=== PATIENT | female | born 1990 | race American Indian/Alaskan Native ===

== ENCOUNTER 2021-01-01 11:13 | Emergency (ER) | payer MEDICAID ==
[2021-01-01 11:32] VITALS: BP 112/90; PULSE 71
--- NOTE | 2021-01-01 12:09 | EDM.PDOC ---
ED HPI GENERAL MEDICAL PROBLEM - General Chief Complaint: Wound Recheck Stated Complaint: PRIOR CYST REMOVAL/INFECTION PAIN Time Seen by Provider: 01/01/21 11:45 Source of Information: Reports: Patient, RN, RN Notes Reviewed History Limitations: Reports: No Limitations - History of Present Illness INITIAL COMMENTS - FREE TEXT/NARRATIVE: Patient presents to the ED via personal vehicle with complaints of pain to incision. The patient reports she underwent a cyst removal on her left labia majora three days ago via Dr. Bolaños. The patient was prescribed Percocet, ibuprofen, Keflex, and lidocaine jelly for treatment. She reports she has not been using the lidocaine jelly. She states increasing pain over the past 12 hours to the incision; she is out of Percocet and has taken two tabs of ibuprofen 400mg twice since 0500 which offered her [id number] alleviation of symptoms. She characterizes the pain as "poking" stinging pain which she rates at a 7/10. She states she is worried about infection. She denies fever, shaking chills, palpitations, nausea, vomiting, or diarrhea. She does attest to scant bloody drainage from the sutures, which her provider told her to expect. She has a follow up appointment on 01/12/21 for suture removal. 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 ED EXAM, SKIN/RASH Exam: See Below Exam Limited By: No Limitations General Appearance: Alert, Mild Distress (From pain to left labia) Respiratory/Chest: No Respiratory Distress, Lungs Clear, Normal Breath Sounds, No Accessory Muscle Use, Chest Non-Tender Cardiovascular: Normal Peripheral Pulses, Regular Rate, Rhythm, No Edema, No Gallop, No JVD, No Murmur, No Rub GI/Abdominal: Normal Bowel Sounds, Soft, Non-Tender, No Distention, No Mass, Pelvis Stable (Female) Exam: Other (Sutures clean with scant jhonathan bloody drainage; No erythema, or purulent drainage noted). No: Normal External Exam (Clean appropriately tied sutures noted to left labia majora) Rectal (Female) Exam: Deferred Extremities: Normal Inspection, Normal Range of Motion, Non-Tender, No Pedal Edema, Normal Capillary Refill Neurological: Alert, Oriented, CN II-XII Intact, Normal Cognition, No Motor/Sensory Deficits, Abnormal Gait (Limping gait due to pain) Psychiatric: Normal Affect, Normal Mood Skin: Warm, Dry, Normal Color, Wound/Incision (Clean dry sutured incision to left labia majora). No: Ecchymosis, Erythema, Increased Warmth, Mottled, Pallor, Petechiae Location, Skin: Genital Characteristics: Other (Surgical incision) Associated features: Weeping (Scant jhonathan, bloody drainage). No: Warmth, Tenderness, Swelling, Inflammation, Crusting Course - Vital Signs Last Recorded V/S: Last Vital Signs Temp 98.4 F 01/01/21 11:29 Pulse 71 01/01/21 11:29 Resp 14 01/01/21 11:29 BP 112/90 01/01/21 11:29 Pulse Ox 97 01/01/21 11:29 - Re-Assessments/Exams Free Text/Narrative Re-Assessment/Exam: 01/01/21 Surgical incision appears clean with appropriately tied sutures; no evidence of erythema. Three long suture threads clipped down with sterile scissors to help alleviate "poking" sensation. Patient encouraged to use lidocaine jelly and ice compresses to the healing area. Will treat acute pain with three more days of Percocet. Patient to continue with follow-up as previously scheduled. Patient verbalized understanding and agreement with the plan of care. Departure - Departure Time of Disposition: 12:04 Disposition: Home, Self-Care Condition: Good Clinical Impression: Incisional pain - Discharge Information *PRESCRIPTION DRUG MONITORING PROGRAM REVIEWED*: Not Applicable *COPY OF PRESCRIPTION DRUG MONITORING REPORT IN PATIENT SOLOMON: Not Applicable Instructions: Sutures, [place], or Adhesive Wound Closure, [id number] Referrals: Vincenzo Shah MD [Primary Care Provider] - Forms: ED Department Discharge Additional Instructions: Rx: Percocet 1.) Continue taking your antibiotics until they are gone. 2.) Follow-up with your providers, as previously scheduled. 3.) You may take ibuprofen (Advil/Motrin) 400mg every six hours, for breakth rough pain. 4.) You may apply ice compresses to the affected area, as pain and swelling persist. Sepsis Event Note (ED) - Evaluation Sepsis Screening Result: No Definite Risk - Focused Exam Vital Signs: Vital Signs Temp Pulse Resp BP Pulse Ox 01/01/21 11:29 98.4 F 71 14 112/90 97
== END 2021-01-01 12:21 | disposition home or self-care (01) ==
LOC: DL.ED 11:13
DX: G89.18 Other acute postprocedural pain (principal)
CPT/HCPCS: 99282; 99283

== ENCOUNTER 2021-01-17 00:07 | Emergency (ER) | payer OTHER, MEDICAID ==
[2021-01-17 00:23] VITALS: BP 128/93; PULSE 102
[2021-01-17] MEDS ORDERED: Acyclovir 200 MG Cap PO ONE (00:28)
[2021-01-17] MEDS ORDERED: Ketorolac 30 MG/ML SDV IVPUSH ONE (00:31)
--- NOTE | 2021-01-17 00:37 | EDM.PDOC ---
ED HPI GENERAL MEDICAL PROBLEM - General Chief Complaint: Skin Complaint Stated Complaint: HISTORY OF SHINGLES Time Seen by Provider: 01/17/21 00:20 Source of Information: Reports: Patient, RN, RN Notes Reviewed History Limitations: Reports: No Limitations - History of Present Illness INITIAL COMMENTS - FREE TEXT/NARRATIVE: Patient presents to the ED via personal vehicle with complaints of burning pain to the skin of her left lateral thigh. She attest to a history of shingles about 1.5 years ago, from which she recovered without complication. She states she began to feel the burning pain to her skin two nights ago when falling asleep. She states she has tried ibuprofen 400mg x2 doses and acetaminophen 650mg x1 dose with [id number] alleviation of pain. She feels the pain to this area is progressing in severity. She states she has not noted lesions to her skin but remembers feeling this burning prior to her last outbreak. She states she has recently been tested for HIV and is not currently ; she does note her sister tragically about one week ago and she has been experiencing significant stress. She denies fever, shaking chills, vision changes, cough, sore throat, palpitations, shortness of breath, nausea, vomiting, or diarrhea. She denies tobacco, alcohol, or recreational drug use. 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 ED EXAM, SKIN/RASH Exam: See Below Exam Limited By: No Limitations General Appearance: Alert, Mild Distress (Tearful from pain to thigh), Thin Eye Exam: Bilateral Eye: Conjunctival Injection, EOMI, PERRL (3mm) Respiratory/Chest: No Respiratory Distress, Lungs Clear, Normal Breath Sounds, No Accessory Muscle Use, Chest Non-Tender Cardiovascular: Normal Peripheral Pulses, Regular Rate, Rhythm, No Edema, No Gallop, No JVD, No Murmur, No Rub Extremities: Normal Range of Motion, Non-Tender, No Pedal Edema, Normal Capillary Refill, Leg Pain (To skin of left lateral thigh; no lesions appreciated). No: Increased Warmth, Mottled, Pallor, Redness Neurological: Alert, Oriented, CN II-XII Intact, Normal Cognition, Normal Gait, No Motor/Sensory Deficits Skin: Warm, Dry, Intact, Normal Color, No Rash. No: Ecchymosis, Erythema, Mot tled, Pallor, Zoster-Like Rash Associated features: No: Warmth, Tenderness, Swelling, Inflammation, Crusting, Weeping Course - Vital Signs Last Recorded V/S: Last Vital Signs Temp 96.6 F L 01/17/21 00:10 Pulse 102 H 01/17/21 00:10 Resp 18 01/17/21 00:10 BP 128/93 H 01/17/21 00:10 Pulse Ox 98 01/17/21 00:10 - Orders/Labs/Meds Meds: Medications Discontinued Medications Generic Name Dose Route Start Last Admin Trade Name Christopher PRN Reason Stop Dose Admin Acyclovir 800 mg 01/17/21 00:28 01/17/21 00:34 Zovirax PO 01/17/21 00:29 800 mg ONETIME ONE Administration Ketorolac Tromethamine 30 mg 01/17/21 00:31 Toradol IVPUSH 01/17/21 00:32 ONETIME ONE - Re-Assessments/Exams Free Text/Narrative Re-Assessment/Exam: 01/17/21 Patient states she hopes to prevent lesions from forming on her leg as her last experience was "...very painful." Will treat with Acyclovir as that is what is available in the formulary. Discussed progression of zoster with the patient, as well as pharmaceutical cares and supportive cares to help alleviate pain and avoid bacterial infection in open lesions. Discussed possibility of Zoster vaccination following this current outbreak. Discussed red flag signs and symptoms which would warrant reevaluation. Patient verbalized understanding and agreement with the plan of care. Departure - Departure Time of Disposition: 00:33 Disposition: Home, Self-Care 01 Condition: Good Clinical Impression: Herpes zoster Qualifiers: Herpes zoster complications: without complications Qualified Code(s): B02.9 - Zoster without complications - Discharge Information *PRESCRIPTION DRUG MONITORING PROGRAM REVIEWED*: Not Applicable *COPY OF PRESCRIPTION DRUG MONITORING REPORT IN PATIENT [place]OM[place]: Not Applicable Instructions: Shingles, [id number]-[id number] Forms: ED Department Discharge Additional Instructions: Rx: Acyclovir 1.) Take all of your medications until gone. 2.) You may take ibuprofen (Advil/Motrin) 400mg every four hours, as pain persists. 3.) Apply cold compresses to the affected as for comfort. 4.) You may also apply anti-itch cream (hydrocortisone) to lesions to lessen the pain/burn/itch 4.) Keep lesions clean, dry, and covered as the open and weep. Sepsis Event Note (ED) - Evaluation Sepsis Screening Result: No Definite Risk - Focused Exam Vital Signs: Vital Signs Temp Pulse Resp BP Pulse Ox 01/17/21 00:10 96.6 F L 102 H 18 128/93 H 98
[2021-01-17] MEDS ORDERED: Acyclovir 200 MG Cap ONE (00:38)
== END 2021-01-17 00:45 | disposition home or self-care (01) ==
LOC: DL.ED 00:07
DX: B02.9 Zoster without complications (principal)
CPT/HCPCS: 96374; 99283; A9270; J1885

== ENCOUNTER 2021-02-21 07:43 | Emergency (ER) | payer MEDICAID, OTHER ==
--- NOTE | 2021-02-21 07:57 | EDM.PDOC ---
ED HPI GENERAL MEDICAL PROBLEM - General Chief Complaint: Respiratory Problem Stated Complaint: CHEST CONGESTION HURTS TO COUGH Time Seen by Provider: 02/21/21 07:57 Source of Information: Reports: Patient, RN, RN Notes Reviewed History Limitations: Reports: No Limitations - History of Present Illness INITIAL COMMENTS - FREE TEXT/NARRATIVE: Pt presents to ER from home by POV with c/o one weeks duration of congestion, cough, and sputum production. Pt states she had a fever the first day, but not since then. She now has sharp pain with deep breathing and coughing. Denies ear pain. Admits to mild sore throat. 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 ED EXAM, GENERAL - Physical Exam Exam: See Below Exam Limited By: No Limitations General Appearance: Alert, WD/WN, No Apparent Distress Eye Exam: Bilateral Eye: Normal Inspection Ears: Normal External Exam, Normal Canal, Hearing Grossly Normal, Normal TMs Nose: No Blood, Nasal Drainage Throat/Mouth: Normal Voice, No Airway Compromise, Other (Postnasal drip, mild pharngeal erythema) Head: Atraumatic, Normocephalic Neck: Normal Inspection, Supple, Non-Tender, Full Range of Motion. No: Lymphadenopathy (L), Lymphadenopathy (R) Respiratory/Chest: No Respiratory Distress, No Accessory Muscle Use, Chest Non- Tender, Crackles, Rhonchi (Left base, clear with cough), Other (Dry cough). No: Rales, Wheezing Cardiovascular: Normal Peripheral Pulses, Regular Rate, Rhythm Extremities: Normal Inspection Neurological: Alert, Oriented, No Motor/Sensory Deficits Psychiatric: Normal Mood Skin Exam: Warm, Dry, Intact, Normal Color, No Rash Course - Vital Signs Last Recorded V/S: Last Vital Signs Temp 98.1 F 02/21/21 07:58 Pulse 78 02/21/21 07:58 Resp 18 02/21/21 07:58 BP 105/83 02/21/21 07:58 Pulse Ox 99 02/21/21 07:58 - Orders/Labs/Meds Meds: Medications Discontinued Medications Generic Name Dose Route Start Last Admin Trade Name Christopher PRN Reason Stop Dose Admin Benzonatate 200 mg 02/21/21 08:04 Benzonatate 100 Mg Cap PO 02/21/21 08:05 ONETIME ONE Prednisone 60 mg 02/21/21 08:04 Prednisone 20 Mg Tab PO 02/21/21 08:05 ONETIME ONE Departure - Departure Time of Disposition: 08:13 Disposition: Home, Self-Care 01 Condition: Good Clinical Impression: URI with cough and congestion, Pleuritic chest pain Acute bronchitis Qualifiers: Bronchitis organism: other organism Qualified Code(s): J20.8 - Acute bronchitis due to other specified organisms - Discharge Information *PRESCRIPTION DRUG MONITORING PROGRAM REVIEWED*: Not Applicable *COPY OF PRESCRIPTION DRUG MONITORING REPORT IN PATIENT [place]OM[place]: Not Applicable Instructions: Acute Bronchitis, Adult, Pleurisy, [id number] Forms: ED Department Discharge Additional Instructions: Rx: Tessalon Perles 200mg Rx: Prednisone 20mg Rx: Zithromax 250mg Follow up in clinic if not improving in 5 days. Sepsis Event Note (ED) - Focused Exam Vital Signs: Vital Signs Temp Pulse Resp BP Pulse Ox 02/21/21 07:58 98.1 F 78 18 105/83 99
[2021-02-21 08:00] VITALS: BP 105/83; PULSE 78
[2021-02-21] MEDS ORDERED: predniSONE 20 MG Tab PO ONE (08:04)
[2021-02-21] MEDS ORDERED: Benzonatate 100 MG Cap PO ONE (08:04)
== END 2021-02-21 08:26 | disposition home or self-care (01) ==
LOC: DL.ED 07:43
DX: J20.8 Acute bronchitis due to other specified organisms (principal); J06.9 Acute upper respiratory infection, unspecified
CPT/HCPCS: 99283; A9270; J7512

== ENCOUNTER 2021-04-26 15:38 | Emergency (ER) | payer MEDICAID, OTHER ==
[2021-04-26 16:01] VITALS: BP 113/80; PULSE 90
[2021-04-26] MEDS ORDERED: Ibuprofen 800 MG Tab PO ONE (16:27)
[2021-04-26] MEDS ORDERED: Lidocaine 5% Oint 35.44 GM Tube TOP ONE (16:30)
--- NOTE | 2021-04-26 16:36 | CR ---
PROCEDURE INFORMATION: Exam: XR Left Wrist Exam date and time: 04/26/2021 4:06 PM Age: 30 years old Clinical indication: Pain; Wrist; Left TECHNIQUE: Imaging protocol: XR Left wrist. Views: 3 or more views. COMPARISON: No relevant prior studies available. FINDINGS: Bones/joints: Normal anatomic alignment. There is no evidence of acutely displaced fractures. There is no evidence of joint dislocation. No aggressive osseous lesions. Soft tissues: There is no significant soft tissue swelling. IMPRESSION: Negative for acute skeletal pathology.
--- NOTE | 2021-04-26 16:37 | EDM.PDOC ---
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 She has bruising and deformity noted. Patient states has been icing the extremity, but the pain became to great today. Onset Date: 04/24/21 Duration: Getting Worse Location: Reports: Upper Extremity, Left Quality: Reports: Ache Severity: Moderate Improves with: Reports: None Worsens with: Reports: None Associated Symptoms: Reports: No Other Symptoms Left Wrist Pain Score (Numeric/FACES): 8 - Related Data Allergies Allergy/AdvReac Type Severity Reaction Status Date / Time No Known Drug Allergies Allergy none Verified 04/26/21 16:01 Home Meds: Home Meds . 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 ED EXAM, GENERAL - Physical Exam Exam: See Below Exam Limited By: No Limitations General Appearance: Alert, WD/WN, No Apparent Distress Throat/Mouth: Normal Voice, No Airway Compromise Head: Atraumatic, Normocephalic Neck: Normal Inspection Respiratory/Chest: No Respiratory Distress Cardiovascular: Normal Peripheral Pulses Extremities: Normal Capillary Refill, Limited Range of Motion (Left wrist and thumb with large bruise, no swelling, no deformity, tender to palpation). No: Joint Swelling Neurological: Alert, Oriented Psychiatric: Normal Mood Skin Exam: Warm, Dry, Intact Course - Vital Signs Last Recorded V/S: Last Vital Signs Temp 98 F 04/26/21 15:58 Pulse 90 04/26/21 15:58 Resp 12 04/26/21 15:58 BP 113/80 04/26/21 15:58 Pulse Ox 96 04/26/21 15:58 - Orders/Labs/Meds Orders: Active Orders 24 hr Category Date Time Status Wrist Comp Min 3V Lt [CR] Urgent Exams 04/26/21 15:56 Taken DME for Discharge [COMM] Routine Oth 04/26/21 16:25 Ordered Meds: Medications Discontinued Medications Generic Name Dose Route Start Last Admin Trade Name Freq PRN Reason Stop Dose Admin Ibuprofen 800 mg 04/26/21 16:27 Ibuprofen 800 Mg Tab PO 04/26/21 16:28 ONETIME ONE Lidocaine HCl 30 gm 04/26/21 16:30 Lidocaine 5% Oint 35.44 Gm Tube TOP 04/26/21 16:31 ONETIME ONE Tramadol HCl 50 mg 04/26/21 16:26 Tramadol 50 Mg Tab PO 04/26/21 16:27 ONETIME ONE Departure - Departure Time of Disposition: 16:31 Disposition: Home, Self-Care 01 Condition: Good Clinical Impression: Left wrist sprain Qualifiers: Encounter type: initial encounter Qualified Code(s): S63.502A - Unspecified sprain of left wrist, initial encounter Left thumb sprain Qualifiers: Encounter type: initial encounter Sprain of finger site: other site Qualified Code(s): S63.682A - Other sprain of left thumb, initial encounter Contusion of left upper extremity Qualifiers: Encounter type: initial encounter Qualified Code(s): S40.022A - Contusion of left upper arm, initial encounter - Discharge Information *PRESCRIPTION DRUG MONITORING PROGRAM REVIEWED*: No *COPY OF PRESCRIPTION DRUG MONITORING REPORT IN PATIENT [place]OMON: No Instructions: Skier's Thumb, Contusion, [id number], Wrist Sprain, Adult Forms: ED Department Discharge Additional Instructions: Rx: Tramadol 50mg Rx: Ibuprofen 800mg Wear left spica splint for 2 weeks. Follow up in clinic for recheck in two weeks. Sepsis Event Note (ED) - Evaluation Sepsis Screening Result: No Definite Risk - Focused Exam Vital Signs: Vital Signs Temp Pulse Resp BP Pulse Ox 04/26/21 15:58 98 F 90 12 113/80 96 - My Orders Last 24 Hours: My Active Orders 04/26/21 15:56 Wrist Comp Min 3V Lt [CR] Urgent 04/26/21 16:25 DME for Discharge [COMM] Routine - Assessment/Plan Last 24 Hours: My Active Orders 04/26/21 15:56 Wrist Comp Min 3V Lt [CR] Urgent 04/26/21 16:25 DME for Discharge [COMM] Routine I have read and agree with the documentation that has been completed regarding this visit. By signing this record, I attest that the documentation was completed in my physical presence and is an accurate record of the encounter.
[2021-04-26] MEDS: traMADol 50 MG Tab PO ONE ×2 (16:38→16:39)
== END 2021-04-26 16:43 | disposition home or self-care (01) ==
LOC: DL.ED 15:38
DX: S63.502A Unspecified sprain of left wrist, initial encounter (principal); S63.682A Other sprain of left thumb, initial encounter; S40.022A Contusion of left upper arm, initial encounter; W18.09XA Striking against other object with subsequent fall, initial encounter
CPT/HCPCS: 73110-LT; 99283; 99283-25; A9270-GY

== ENCOUNTER 2022-03-07 11:10 | Emergency (ER) | payer MEDICAID ==
[2022-03-07 11:21] VITALS: BP 131/67; PULSE 80
[2022-03-07] MEDS ORDERED: Ketorolac 30 MG/ML SDV IM ONE (12:47)
== END 2022-03-07 13:15 | disposition home or self-care (01) ==
LOC: DL.ED 11:10
DX: R10.2 Pelvic and perineal pain (principal)
CPT/HCPCS: 96372; 99283; J1885

== ENCOUNTER 2022-04-02 23:01 | Emergency (ER) | payer MEDICAID ==
[2022-04-03 00:27] LABS: ANION GAP 14.6 mEq/L (7-13); CHLORIDE,CL 106 mmol/L (98-107); SODIUM,NA 139 mmol/L (136-145)
[2022-04-03] MEDS ORDERED: Ketorolac 30 MG/ML SDV IM ONE (00:42)
[2022-04-03 01:05] VITALS: BP 114/75; PULSE 84
== END 2022-04-03 01:47 | disposition home or self-care (01) ==
LOC: DL.ED 23:01
DX: R10.31 Right lower quadrant pain (principal); R10.32 Left lower quadrant pain; Z88.5 Allergy status to narcotic agent
CPT/HCPCS: 36415; 80053; 83605; 85025; 96372; 99284; J1885

== ENCOUNTER 2022-05-22 11:30 | Emergency (ER) | payer MEDICAID ==
[2022-05-22 12:18] VITALS: BP 117/78; PULSE 84
== END 2022-05-22 13:05 | disposition left against medical advice (07) ==
LOC: DL.ED 11:30
DX: Z53.21 Procedure and treatment not carried out due to patient leaving prior to being seen by health care provider (principal)

== ENCOUNTER 2022-06-18 11:47 | Emergency (ER) | payer MEDICAID ==
[2022-06-18 14:00] VITALS: BP 114/72; PULSE 74
== END 2022-06-18 13:08 | disposition left against medical advice (07) ==
LOC: DL.ED 11:47
DX: Z53.21 Procedure and treatment not carried out due to patient leaving prior to being seen by health care provider (principal)

== ENCOUNTER 2022-09-25 07:19 | Emergency (ER) | payer MEDICAID ==
[2022-09-25 08:19] VITALS: BP 137/94; PULSE 93
[2022-09-25] MEDS ORDERED: Acetaminophen/oxyCODONE 325-5 MG Tab PO ONE (08:34)
== END 2022-09-25 08:50 | disposition home or self-care (01) ==
LOC: DL.ED 07:19
DX: N80.9 Endometriosis, unspecified (principal); Z88.5 Allergy status to narcotic agent
CPT/HCPCS: 99283; A9270

== ENCOUNTER 2022-10-21 14:17 | Emergency (ER) | payer MEDICAID ==
[2022-10-21 14:31] VITALS: BP 132/95; PULSE 80
== END 2022-10-21 17:15 | disposition home or self-care (01) ==
LOC: DL.ED 14:17
DX: N94.6 Dysmenorrhea, unspecified (principal); Z88.5 Allergy status to narcotic agent
CPT/HCPCS: 99283

== ENCOUNTER 2023-04-03 07:16 | Emergency (ER) | payer MEDICAID ==
[2023-04-03 07:48] VITALS: BP 123/95; PULSE 77
[2023-04-03 08:00] LABS: BILIRUBIN,URINE NEGATIVE (NEGATIVE); COLOR,URINE YELLOW (YELLOW); GLUCOSE,URINE NEGATIVE (NEGATIVE); KETONES,URINE NEGATIVE (NEGATIVE); LEUKOCYTE ESTERASE,URINE NEGATIVE (NEGATIVE); NITRITE,URINE NEGATIVE (NEGATIVE); OCCULT BLOOD,URINE NEGATIVE (NEGATIVE); PROTEIN,URINE NEGATIVE (NEGATIVE); UROBILINOGEN,URINE 0.2 mg/dL (0.2-1.0)
[2023-04-03 08:01] LABS: APPEARANCE,URINE CLOUDY (CLEAR)
[2023-04-03 08:09] LABS: BASOPHILS PERCENT AUTO 0.2 % (0.0-1.0); EOSINOPHILS PERCENT AUTO 3.3 % (1.0-3.0); HEMATOCRIT 37.7 % (37.0-47.0); HEMOGLOBIN 12.5 g/dL (12.0-16.0); LYMPHOCYTES PERCENT AUTO 28.8 % (20.5-50.1); MEAN CORPUSCULAR HEMOGLOBIN 28.1 pg (27.0-34.0); MEAN CORPUSCULAR HGB CONC 33.2 g/dL (33.0-35.0); MEAN CORPUSCULAR VOLUME 84.7 fL (80-100); MONOCYTES PERCENT AUTO 8.6 % (2-8); NEUTROPHILS PERCENT AUTO 59.1 % (42.2-75.2); PLATELET COUNT,PLT 261 10^3/uL (150-450); RED BLOOD CELL COUNT 4.45 10^6/uL (4.2-5.4); WHITE BLOOD CELL COUNT,WBC 6.3 10^3/uL (5.0-10.0)
[2023-04-03 08:30] LABS: ALBUMIN 3.6 g/dL (3.4-5.0); ANION GAP 13.9 mEq/L (7-13); BILIRUBIN TOTAL 0.4 mg/dL (0.2-1.0); BUN/CREATININE RATIO 10.5 (No establ ref range); CALCIUM 8.4 mg/dL (8.5-10.1); CREATININE 0.76 mg/dL (0.55-1.02); EST CRCL DRUG DOSING (CG) 93.47 mL/min; POTASSIUM,K 3.9 mmol/L (3.5-5.1); PROTEIN TOTAL,TP 7.3 g/dL (6.4-8.2)
[2023-04-03] MEDS ORDERED: Ketorolac 30 MG/ML SDV IM ONE (08:56)
== END 2023-04-03 09:30 | disposition home or self-care (01) ==
LOC: DL.ED 07:16
DX: R10.2 Pelvic and perineal pain (principal); Z88.5 Allergy status to narcotic agent
CPT/HCPCS: 36415; 76856; 80053; 81003; 81025; 85025; 96372; 99284; J1885

== ENCOUNTER 2023-04-05 18:24 | Emergency (ER) | payer OTHER, MEDICAID ==
[2023-04-05] MEDS ORDERED: Iopamidol 612 MG/ML 100 ML Bottle IVPUSH ONE (18:41)
[2023-04-05 18:49] LABS: BASOPHILS PERCENT AUTO 0.1 % (0.0-1.0); EOSINOPHILS PERCENT AUTO 1.6 % (1.0-3.0); HEMATOCRIT 37.1 % (37.0-47.0); HEMOGLOBIN 12.4 g/dL (12.0-16.0); LYMPHOCYTES PERCENT AUTO 26.8 % (20.5-50.1); MEAN CORPUSCULAR HEMOGLOBIN 28.2 pg (27.0-34.0); MEAN CORPUSCULAR HGB CONC 33.4 g/dL (33.0-35.0); MEAN CORPUSCULAR VOLUME 84.3 fL (80-100); MONOCYTES PERCENT AUTO 8.1 % (2-8); NEUTROPHILS PERCENT AUTO 63.4 % (42.2-75.2); PLATELET COUNT,PLT 273 10^3/uL (150-450); WHITE BLOOD CELL COUNT,WBC 7.9 10^3/uL (5.0-10.0)
[2023-04-05 19:17] LABS: INR 0.9 (0.9-1.2); PROTHROMBIN TIME 9.6 SEC (9.0-12.0); PTT,PARTIAL THROMBOPLSTIN TIME 25.4 SEC (22.0-34.0)
[2023-04-05 19:20] LABS: A/G RATIO 1.2; ALANINE AMINOTRANSFERASE,ALT 33 U/L (14-59); ALKALINE PHOSPHATASE 61 U/L (46-116); ANION GAP 17.8 mEq/L (7-13); ASPARTATE AMNIOTRANSFERASE,AST 24 U/L (15-37); BILIRUBIN TOTAL 0.7 mg/dL (0.2-1.0); BLOOD UREA NITROGEN,BUN 8 mg/dL (7-18); BUN/CREATININE RATIO 9.4 (No establ ref range); CALCIUM 8.7 mg/dL (8.5-10.1); CARBON DIOXIDE,CO2 21 mmol/L (21-32); CHLORIDE,CL 105 mmol/L (98-107); CREATININE 0.85 mg/dL (0.55-1.02); GLUCOSE RANDOM 101 mg/dL (70-99); POTASSIUM,K 3.8 mmol/L (3.5-5.1); PROTEIN TOTAL,TP 7.4 g/dL (6.4-8.2); SODIUM,NA 140 mmol/L (136-145)
[2023-04-05 19:23] LABS: ESTIMATED GFR 94 mL/min (>=60); ETHANOL BLOOD MEDICAL < 3 mg/dL (0)
[2023-04-05] MEDS ORDERED: Morphine 2 MG/ML SYRINGE IVPUSH ONE ×2 (19:34→20:11)
[2023-04-05] MEDS ORDERED: Ondansetron 4 MG/2 ML SDV IVPUSH ONE (19:41)
[2023-04-05 19:58] LABS: APPEARANCE,URINE CLEAR (CLEAR); BILIRUBIN,URINE NEGATIVE (NEGATIVE); COLOR,URINE YELLOW (YELLOW); GLUCOSE,URINE NEGATIVE (NEGATIVE); KETONES,URINE NEGATIVE (NEGATIVE); LEUKOCYTE ESTERASE,URINE NEGATIVE (NEGATIVE); NITRITE,URINE NEGATIVE (NEGATIVE); OCCULT BLOOD,URINE NEGATIVE (NEGATIVE); PH,URINE 5.5 (5.0-9.0); PROTEIN,URINE NEGATIVE (NEGATIVE); UROBILINOGEN,URINE 0.2 mg/dL (0.2-1.0)
[2023-04-05 20:04] LABS: AMPHETAMINES,URINE NEGATIVE (NEGATIVE); BARBITURATES,URINE NEGATIVE (NEGATIVE); BENZODIAZEPINE,URINE NEGATIVE (NEGATIVE); MDMA (ECSTASY), URINE NEGATIVE (NEGATIVE); METHADONE,URINE NEGATIVE (NEGATIVE); METHAMPHETAMINES,URINE NEGATIVE (NEGATIVE); OPIATES,URINE NEGATIVE (NEGATIVE); OXYCODONE,URINE POSITIVE (NEGATIVE); PHENCYCLIDINE,URINE NEGATIVE (NEGATIVE); TCA,URINE NEGATIVE (NEGATIVE)
[2023-04-05] MEDS ORDERED: HYDROmorphone 0.5 MG/0.5 ML Syringe IVPUSH ONE (21:34)
[2023-04-05] MEDS ORDERED: Take Home: Acetaminophen/HYDROcodone 325-5 MG, 5 Tab Pack PO ONE (22:09)
[2023-04-05] MEDS ORDERED: HYDROmorphone 1 MG/ML Syringe IVPUSH ONE (22:11)
== END 2023-04-05 22:30 | disposition home or self-care (01) ==
LOC: DL.ED 18:24
DX: S82.891A Other fracture of right lower leg, initial encounter for closed fracture (principal); S02.2XXA Fracture of nasal bones, initial encounter for closed fracture; Z88.5 Allergy status to narcotic agent; V86.99XA Unspecified occupant of other special all-terrain or other off-road motor vehicle injured in nontraffic accident, initial encounter; Y92.410 Unspecified street and highway as the place of occurrence of the external cause
CPT/HCPCS: 36415; 51702; 70450; 70486; 71260; 72125; 73610; 74177; 80053; 80305; 80307; 81003; 81025; 84145; 85025; 85610; 85730; 86850; 86900; 86901; 96374; 96375; 99284; A9270; J1170; J2270; J2405; Q9967; 71250; 74176

== ENCOUNTER 2023-04-07 12:30 | Emergency (ER) | payer MEDICAID ==
[2023-04-07] MEDS ORDERED: Ketorolac 10 MG Tab PO ONE (13:02)
[2023-04-07 14:30] VITALS: BP 130/90; PULSE 86
== END 2023-04-07 14:26 | disposition home or self-care (01) ==
LOC: DL.ED 12:30
DX: S92.251G Displaced fracture of navicular [scaphoid] of right foot, subsequent encounter for fracture with delayed healing (principal); S92.211 Displaced fracture of cuboid bone of right foot; Z88.5 Allergy status to narcotic agent; V86.99XD Unspecified occupant of other special all-terrain or other off-road motor vehicle injured in nontraffic accident, subsequent encounter
CPT/HCPCS: 73610; 99283; A9270

== ENCOUNTER 2023-12-24 23:34 | Emergency (ER) | payer MEDICAID ==
[2023-12-24 23:54] VITALS: BP 118/87; PULSE 89
[2023-12-25] MEDS: Sodium Chloride 0.9% 10 ML Syringe FLUSH PRN (00:12)
[2023-12-25] MEDS: HYDROmorphone 1 MG/ML Syringe IVPUSH ONE (00:15)
[2023-12-25 00:18] LABS: BASOPHILS PERCENT AUTO 0.1 % (0.0-1.0); EOSINOPHILS PERCENT AUTO 3.2 % (1.0-3.0); HEMATOCRIT 40.2 % (37.0-47.0); HEMOGLOBIN 13.4 g/dL (12.0-16.0); LYMPHOCYTES PERCENT AUTO 25.1 % (20.5-50.1); MEAN CORPUSCULAR HEMOGLOBIN 27.9 pg (27.0-34.0); MEAN CORPUSCULAR HGB CONC 33.3 g/dL (33.0-35.0); MEAN CORPUSCULAR VOLUME 83.8 fL (80-100); MONOCYTES PERCENT AUTO 9.5 % (2-8); NEUTROPHILS PERCENT AUTO 62.1 % (42.2-75.2); PLATELET COUNT,PLT 303 10^3/uL (150-450); WHITE BLOOD CELL COUNT,WBC 10.6 10^3/uL (5.0-10.0)
[2023-12-25] MEDS: Ketorolac 30 MG/ML SDV IVPUSH ONE (00:20)
[2023-12-25 00:34] LABS: A/G RATIO 0.8; ALBUMIN 3.7 g/dL (3.4-5.0); ANION GAP 14.6 mEq/L (7-13); BILIRUBIN TOTAL 0.5 mg/dL (0.2-1.0); BUN/CREATININE RATIO 12.6 (No establ ref range); CALCIUM 8.8 mg/dL (8.5-10.1); CREATININE 0.87 mg/dL (0.55-1.02); EST CRCL DRUG DOSING (CG) 80.91 mL/min; POTASSIUM,K 3.6 mmol/L (3.5-5.1); PROTEIN TOTAL,TP 8.4 g/dL (6.4-8.2)
[2023-12-25] MEDS: Iopamidol 612 MG/ML 100 ML Bottle IARTIC ONE (00:39)
[2023-12-25] MEDS: Iopamidol 612 MG/ML 100 ML Bottle IVPUSH ONE (00:41)
== END 2023-12-25 02:10 | disposition home or self-care (01) ==
LOC: DL.ED 23:34
DX: M54.42 Lumbago with sciatica, left side (principal); R10.31 Right lower quadrant pain; R10.32 Left lower quadrant pain; Z90.710 Acquired absence of both cervix and uterus; Z88.5 Allergy status to narcotic agent
CPT/HCPCS: 36415; 74177; 80053; 85025; 96374; 96375; 99283; 99284; J1170; J1885; Q9967; J3490

== ENCOUNTER 2023-12-28 01:06 | Emergency (ER) | payer MEDICAID ==
[2023-12-28] MEDS: Phenazopyridine 95 MG Tab PO ONE (01:30)
[2023-12-28] MEDS: Sodium Chloride 0.9% 10 ML Syringe FLUSH PRN (01:38)
[2023-12-28] MEDS: Ketorolac 30 MG/ML SDV IVPUSH ONE (01:39)
[2023-12-28] MEDS: Sodium Chloride 0.9% 1,000 ML IV ONE (01:39)
[2023-12-28 01:41] LABS: BASOPHILS PERCENT AUTO 0.1 % (0.0-1.0); EOSINOPHILS PERCENT AUTO 4.5 % (1.0-3.0); HEMATOCRIT 38.1 % (37.0-47.0); HEMOGLOBIN 12.6 g/dL (12.0-16.0); LYMPHOCYTES PERCENT AUTO 14.6 % (20.5-50.1); MEAN CORPUSCULAR HEMOGLOBIN 27.9 pg (27.0-34.0); MEAN CORPUSCULAR HGB CONC 33.1 g/dL (33.0-35.0); MEAN CORPUSCULAR VOLUME 84.5 fL (80-100); MONOCYTES PERCENT AUTO 8.2 % (2-8); NEUTROPHILS PERCENT AUTO 72.6 % (42.2-75.2); PLATELET COUNT,PLT 292 10^3/uL (150-450); RED BLOOD CELL COUNT 4.51 10^6/uL (4.2-5.4); WHITE BLOOD CELL COUNT,WBC 13.6 10^3/uL (5.0-10.0)
[2023-12-28 01:57] LABS: BILIRUBIN,URINE NEGATIVE (NEGATIVE); COLOR,URINE YELLOW (YELLOW); GLUCOSE,URINE NEGATIVE (NEGATIVE); KETONES,URINE NEGATIVE (NEGATIVE); LEUKOCYTE ESTERASE,URINE SMALL (NEGATIVE); NITRITE,URINE NEGATIVE (NEGATIVE); OCCULT BLOOD,URINE NEGATIVE (NEGATIVE); PH,URINE 7.5 (5.0-9.0); PROTEIN,URINE NEGATIVE (NEGATIVE); UROBILINOGEN,URINE 0.2 mg/dL (0.2-1.0)
[2023-12-28 01:58] LABS: APPEARANCE,URINE SLIGHTLY CLOUDY (CLEAR)
[2023-12-28 02:05] LABS: RBC,URINE 0-5 /HPF (0-5); WBC,URINE 0-5 /HPF (0-5/HPF)
[2023-12-28 02:06] LABS: AMORPHOUS SEDIMENT,URINE MODERATE /HPF (NOT SEEN); BACTERIA,URINE FEW /HPF (0-FEW/HPF); EPITHELIAL CELLS,URINE FEW /HPF (NOT SEEN)
[2023-12-28] MEDS: fentaNYL 100 MCG/2 ML SDV IVPUSH ONE ×2 (02:15→03:25)
[2023-12-28] MEDS: Azithromycin 250 MG Tab PO ONE (02:44)
[2023-12-28] MEDS: cefTRIAXone 1 GM Vial IVPUSH ONE (02:44)
[2023-12-28] MEDS: Take Home: Acetaminophen/HYDROcodone 325-5 MG, 5 Tab Pack PO ONE (03:31)
[2023-12-28 03:33] VITALS: BP 110/53; PULSE 70
[2023-12-30 12:46] LABS: C.TRACHOMATIS BY TMA Negative (Negative); N.GONORRHOEAE BY TMA Negative (Negative); SOURCE URINE
== END 2023-12-28 03:38 | disposition home or self-care (01) ==
LOC: DL.ED 01:06
DX: N76.0 Acute vaginitis (principal); N30.90 Cystitis, unspecified without hematuria; Z88.5 Allergy status to narcotic agent; Z90.710 Acquired absence of both cervix and uterus
CPT/HCPCS: 36415; 81001; 83690; 85025; 87086; 87491; 87591; 96361; 96374; 96375; 96376; 99283; 99284; A9270; J0696; J1885; J3010; J7030; J3490

== ENCOUNTER 2024-07-21 17:42 | Emergency (ER) | payer BC, MEDICAID ==
[2024-07-21 18:45] VITALS: BP 136/108; PULSE 81
== END 2024-07-21 18:48 | disposition left against medical advice (07) ==
LOC: DL.ED 17:42
DX: R10.2 Pelvic and perineal pain (principal); Z53.29 Procedure and treatment not carried out because of patient's decision for other reasons; Z88.8 Allergy status to other drugs, medicaments and biological substances; Z90.710 Acquired absence of both cervix and uterus
CPT/HCPCS: 99282; 99283

== ENCOUNTER 2025-01-27 09:23 | Emergency (ER) | payer MEDICAID ==
[2025-01-27 09:49] VITALS: BP 126/72; PULSE 88
[2025-01-27 10:04] LABS: BILIRUBIN,URINE NEGATIVE (NEGATIVE); COLOR,URINE YELLOW (YELLOW); GLUCOSE,URINE NEGATIVE (NEGATIVE); KETONES,URINE NEGATIVE (NEGATIVE); LEUKOCYTE ESTERASE,URINE NEGATIVE (NEGATIVE); NITRITE,URINE NEGATIVE (NEGATIVE); OCCULT BLOOD,URINE TRACE-INTACT (NEGATIVE); PH,URINE 5.5 (5.0-9.0); PROTEIN,URINE NEGATIVE (NEGATIVE); UROBILINOGEN,URINE 0.2 mg/dL (0.2-1.0)
[2025-01-27 10:05] LABS: APPEARANCE,URINE SLIGHTLY CLOUDY (CLEAR)
[2025-01-27] MEDS: Iopamidol 612 MG/ML 100 ML Bottle IVPUSH ONE (10:09)
[2025-01-27 10:14] LABS: BASOPHILS PERCENT AUTO 0.2 % (0.0-1.0); EOSINOPHILS PERCENT AUTO 4.2 % (1.0-3.0); HEMATOCRIT 42.1 % (37.0-47.0); HEMOGLOBIN 14.1 g/dL (12.0-16.0); LYMPHOCYTES PERCENT AUTO 20.4 % (20.5-50.1); MEAN CORPUSCULAR HEMOGLOBIN 29.8 pg (27.0-34.0); MEAN CORPUSCULAR HGB CONC 33.5 g/dL (33.0-35.0); MONOCYTES PERCENT AUTO 6.3 % (2-8); NEUTROPHILS PERCENT AUTO 68.9 % (42.2-75.2); PLATELET COUNT,PLT 288 10^3/uL (150-450); RED BLOOD CELL COUNT 4.73 10^6/uL (4.2-5.4); WHITE BLOOD CELL COUNT,WBC 8.6 10^3/uL (5.0-10.0)
[2025-01-27 10:14] LABS: BACTERIA,URINE MANY /HPF (0-FEW/HPF); EPITHELIAL CELLS,URINE MODERATE /HPF (NOT SEEN); RBC,URINE 0-5 /HPF (0-5)
[2025-01-27 10:15] LABS: MUCUS,URINE OCCASIONAL /LPF (NOT SEEN)
[2025-01-27 10:29] LABS: INR 0.9 (0.9-1.2); PROTHROMBIN TIME 9.8 SEC (9.0-12.0)
[2025-01-27] MEDS: HYDROmorphone 0.5 MG/0.5 ML Syringe IVPUSH ONE (10:30)
[2025-01-27 10:37] LABS: A/G RATIO 0.9; ANION GAP 9.1 mEq/L (7-13); BILIRUBIN DIRECT 0.2 mg/dL (0.0-0.2); BILIRUBIN INDIRECT 0.9; BILIRUBIN TOTAL 1.1 mg/dL (0.2-1.0); CALCIUM 9.5 mg/dL (8.5-10.1); CREATININE 0.81 mg/dL (0.55-1.02); EST CRCL DRUG DOSING (CG) 86.1 mL/min; POTASSIUM,K 4.1 mmol/L (3.5-5.1); PROTEIN TOTAL,TP 8.5 g/dL (6.4-8.2)
[2025-01-27] MEDS: Sodium Chloride 0.9% 1,000 ML IV SCH (11:12)
== END 2025-01-27 12:07 | disposition home or self-care (01) ==
LOC: DL.ED 09:23
DX: R10.30 Lower abdominal pain, unspecified (principal); Z88.5 Allergy status to narcotic agent
CPT/HCPCS: 36415; 74177; 80048; 80076; 81001; 82150; 83690; 85025; 85610; 96361; 96374; 99283; 99284-25; J7030; Q9967